=== PATIENT | male | born 1995 | race African-American/Black ===

== ENCOUNTER 2023-04-01 01:24 | Emergency (ER) | payer BC ==
[~2023-04-01] VITALS: Ht 180.3 cm; Wt 81.0 kg
[2023-04-01 01:48] VITALS: BP 136/78; PULSE 75; RESP 18; TEMP 97.8; O2SAT 97
== END 2023-04-01 03:35 | disposition left against medical advice (07) ==
LOC: ER 01:24
DX: Z53.21 Procedure and treatment not carried out due to patient leaving prior to being seen by health care provider (principal)
CPT/HCPCS: 99281